=== PATIENT | male | born 1990 | race Caucasian/White ===

== ENCOUNTER 2018-05-23 17:15 | Outpatient (CLI) | payer OTHER ==
--- NOTE | 2018-05-23 18:34 | CT Report ---
Procedure Date: 05/23/2018 Accession Number: [id number] / [id number] Procedure: CT - Abdomen/Pelvis W/O CPT Code: FULL RESULT: EXAM: CT ABDOMEN AND PELVIS (CT KUB) EXAM DATE: 05/23/2018 06:14 PM. CLINICAL HISTORY: HEMATURIA UNSPECIFIED, UROLITHIASIS. COMPARISONS: 09/27/2014. TECHNIQUE: Routine axial helical CT imaging was performed through the abdomen and pelvis without IV contrast. Reconstructions: Coronal and sagittal. In accordance with CT protocol optimization, one or more of the following dose reduction techniques were utilized for this exam: automated exposure control, adjustment of mA and/or KV based on patient size, or use of iterative reconstructive technique. FINDINGS: Lung Bases: Unremarkable. Right Kidney/Ureter: Mild right hydronephrosis from a 5 x 6 mm ureteropelvic junction calcification. 2 mm lower pole nonobstructing calcification Left Kidney/Ureter: No stones, hydronephrosis, or hydroureter. No perinephric fat stranding. Other Solid Organs: Noncontrast images of the solid organs are grossly unremarkable. Gallbladder/Bile Ducts: Unremarkable. Peritoneal Cavity: No free fluid, free air or sharee adenopathy. Bowel is grossly unremarkable. Normal appendix Pelvic Organs: No bladder stones or wall thickening. Noncontrast images of the visualized pelvic organs are unremarkable. Vasculature: Unremarkable. Other: None. IMPRESSION: Mild right hydronephrosis from a 5 x 6 mm ureteropelvic junction calcification. 2 mm right lower pole nonobstructing calcification [facility] The call report notification system was initiated by Dr. Rosalee Dobbins at 18:29 hrs on 05/23/18. The above findings were discussed with Kamla Molina Dr by Dr. Rosalee Dobbins at 18:33 hrs on 05/23/18.
== END 2018-05-23 17:16 | disposition home or self-care (01) ==
LOC: DI 17:15
PROVIDERS: ATTEND Family Medicine
DX: R31.9 Hematuria, unspecified (principal); N20.9 Urinary calculus, unspecified; I13.0 Hypertensive heart and chronic kidney disease with heart failure and stage 1 through stage 4 chronic kidney disease, or unspecified chronic kidney disease; E11.22 Type 2 diabetes mellitus with diabetic chronic kidney disease; N18.9 Chronic kidney disease, unspecified; I50.9 Heart failure, unspecified; C90.00 Multiple myeloma not having achieved remission
CPT/HCPCS: 74176

== ENCOUNTER 2018-08-30 16:43 | Emergency (ER) | payer OTHER ==
[2018-08-30 17:01] VITALS: BP 136/79
[2018-08-30] MEDS ORDERED: LIDOCAINE 1% 2 ML VIAL SUBQ STA (17:29)
--- NOTE | 2018-08-30 18:23 | ED Physician Documentation ---
PD HPI UPPER EXT INJURY - Stated complaint Stated Complaint: RT THUMB LAC/INJ - Chief complaint Chief Complaint: Laceration - History obtained from History obtained from: Patient - History of Present Illness Location: Right, Other (thumb) Type of injury: Laceration Where injury occurred: Work Timing - onset: How many hours ago (1.5) Timing - duration: Hours (1.5) Timing - details: Abrupt onset, Still present Pain level max: 0 Pain level now: 0 Improved by: Nothing Worsened by: Other (Nothing) Associated symptoms: No: Weakness, Numbness, Tingling, Swelling, Discolored Contributing factors: No: Anticoagulated, Prior ortho surgery Similar symptoms before: Has not had sx before Recently seen: Not recently seen - Additonal information Additional information: 28-year-old Male With history of kidney stone and stent here with complaint of right 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 He stated he does not know when his last tetanus shot was. Review of Systems Ten Systems: 10 systems reviewed and negative Constitutional: denies: Fever Skin: reports: Laceration (s) Musculoskeletal: denies: Extremity pain, Extremity swelling Neurologic: denies: Numbness PD PAST MEDICAL HISTORY - Past Medical History Past Medical History: No Cardiovascular: None Respiratory: None Endocrine/Autoimmune: None GI: None : None Psych: None Musculoskeletal: None Derm: None - Past Surgical History Past Surgical History: Yes General: Colonoscopy - Present Medications Home Medications: Ambulatory Orders Medication Instructions Recorded Confirmed Famotidine [Pepcid] 20 mg PO BID #20 tablet 10/08/13 Ciprofloxacin HCl [Cipro] 500 mg PO BID #20 tablet 09/18/14 Ibuprofen 600 mg PO Q6HR PRN #20 tablet 09/18/14 Ondansetron Odt [Zofran] 4 mg TL Q6H PRN #10 tablet 09/18/14 Oxycodone HCl/Acetaminophen 1 each PO Q4HR PRN #15 tablet 09/18/14 [Percocet 5-325 mg Tablet] Tamsulosin [Flomax] 0.4 mg PO DAILY #5 capsule 09/18/14 - Allergies Allergies/Adverse Reactions: Allergies Allergy/AdvReac Type Severity Reaction Status Date / Time Sulfa (Sulfonamide Allergy Intermediate Hives Verified 08/30/18 17:02 Antibiotics) - Social History Does the pt smoke?: No Smoking Status: Never smoker Does the pt drink ETOH?: Yes Does the pt have substance abuse?: No - Immunizations Immunizations are current?: Yes - POLST Patient has POLST: No PD ED PE NORMAL - Vitals Vital signs reviewed: Yes - General General: Alert and oriented X 3, No acute distress, Well developed/nourished - HEENT HEENT: Moist mucous membranes - Neck Neck: Supple, no meningeal sign - Cardiac Cardiac: RRR, Strong equal pulses - Respiratory Respiratory: No respiratory distress - Derm Derm: Normal color, Warm and dry, No rash, Other (Right thumb volar aspect there is a 1 cm linear laceration in the middle aspect, depth about 2 mm. Full range of motion. Strength 5/5. No tendon injury noted. Capillary refill less than 2 seconds. Color pink. Bleeding controlled. Pulses +2. Sensation intact) - Extremities Extremities: No deformity, No tenderness to palpate, Normal ROM s pain, No edema - Neuro Neuro: Alert and oriented X 3, No motor deficit, No sensory deficit - Psych Psych: Normal mood, Normal affect Results - Vitals Vitals: Vital Signs - 24 hr 08/30/18 16:59 Temperature 36.8 C Heart Rate 90 Respiratory 14 Rate Blood Pressure 136/79 H O2 Saturation 97 Oxygen O2 Source Room air Procedures - Laceration (location) Finger right Dorsal Length in cm: 1 Wound type: Linear, Superficial Neurovascular status: Sensory intact, Motor intact, Vascular intact Tendon involvement: Tendon intact. No: Tendon Injury Anesthesia: Lidocaine 1% Wound Preparation: Irrigated copiously NS Skin layer closure: Nylon, Steri strips, Interrupted, Size #-0 - enter number (5), Sutures - enter # (3) Other: Patient tolerated well, No complications, Neurovascular intact, Tetanus booster given Complexity: Simple Departure - Departure Disposition: 01 Home, Self Care Clinical Impression: Laceration Condition: Stable Instructions: ED Laceration All Comments: Keep wound clean and dry. Steri-Strips will come off by itself. Wound check in 2 days. Suture removal in 7 days. If signs of infection Or worse return to the emergency room.Today you received a tetanus booster shot (TDap), Light duty at work for 1 week. Forms: Activity restrictions
[2018-08-30] MEDS ORDERED: TETANUS/DIPHTHERIA/PERTUSSIS 0.5 ML SYRINGE IM ONE (18:30)
== END 2018-08-30 18:45 | disposition home or self-care (01) ==
LOC: ED 16:43
DX: S61.011A Laceration without foreign body of right thumb without damage to nail, initial encounter (principal); W26.0XXA Contact with knife, initial encounter; Y99.0 Civilian activity done for income or pay; Z23 Encounter for immunization
CPT/HCPCS: 90471; 99282; 99283

== ENCOUNTER 2020-10-22 18:59 | Emergency (ER) | payer OTHER ==
--- NOTE | 2020-10-22 20:02 | ED Physician Documentation ---
History of Present Illness - Stated complaint Stated Complaint: TREE FELL ON RT SIDE OF BODY - Chief complaint Chief Complaint: General - History obtained from History obtained from: Patient - Additonal information Additional information: Patient comes emergency department chief complaint of a tree falling on his shoulder now having mid back pain and left hamstring pain. Patient states that he had partially cut through a log the trunk of a tree which had blown down in his [place] property, and a stop sign had gotten stuck. He states that while he was waiting for a couple of the other men to help him with the tree, he began taking branches off the tree and suddenly heard a cracking sound. The end of the trunk fell down onto his right shoulder, grazing his right ear and scalp. He states he did not sustain a major blow to the head and that he mainly is just felt bruised above his ear. There is no loss of consciousness. Patient states his neck feels a little tight in the lateral musculature on the right but otherwise no neck issues. The patient has noticed some muscle soreness on his right back in the thoracic area. No spinal pain that he is noted. Patient also complains of some left hamstring pain that he describes as more of an ache. The patient states that after the injury, which knocked him to the ground, he was able to get back up and work. He states that the tree did not crush him and that he actually felt pretty good after initially getting knocked down. He finished clearing the property of down trees but by the end of the day, began to notice that the pain in his muscles was a little worse. Patient characterizes it as an ache and states that he took a dose of naproxen which helped quite a bit. He states he just thought he would come in and make sure that everything was okay. No other complaints at this time. No numbness or tingling in any extremities. No weakness. No dizziness or headache. No right shoulder pain. No abdominal or chest pain. No other complaints at this time. Review of Systems Ten Systems: 10 systems reviewed and negative Constitutional: reports: Reviewed and negative Eyes: reports: Reviewed and negative Ears: reports: Reviewed and negative Nose: reports: Reviewed and negative Throat: reports: Reviewed and negative Cardiac: reports: Reviewed and negative Respiratory: reports: Reviewed and negative GI: reports: Reviewed and negative : reports: Reviewed and negative Skin: reports: Reviewed and negative Musculoskeletal: reports: Back pain, Extremity pain Neurologic: reports: Reviewed and negative Psychiatric: reports: Reviewed and negative Endocrine: reports: Reviewed and negative Immunocompromised: reports: Reviewed and negative PD PAST MEDICAL HISTORY - Past Medical History Past Medical History: Yes Cardiovascular: None Respiratory: None Endocrine/Autoimmune: None GI: None : Kidney stones Psych: None Musculoskeletal: Chronic back pain Derm: None - Past Surgical History Past Surgical History: Yes General: Colonoscopy - Present Medications Home Medications: Ambulatory Orders Medication Instructions Recorded Confirmed Famotidine [Pepcid] 20 mg PO BID #20 tablet 10/08/13 Ciprofloxacin HCl [Cipro] 500 mg PO BID #20 tablet 09/18/14 Ibuprofen 600 mg PO Q6HR PRN #20 tablet 09/18/14 Ondansetron Odt [Zofran] 4 mg TL Q6H PRN #10 tablet 09/18/14 Oxycodone HCl/Acetaminophen 1 each PO Q4HR PRN #15 tablet 09/18/14 [Percocet 5-325 mg Tablet] Tamsulosin [Flomax] 0.4 mg PO DAILY #5 capsule 09/18/14 - Allergies Allergies/Adverse Reactions: Allergies Allergy/AdvReac Type Severity Reaction Status Date / Time Sulfa (Sulfonamide Allergy Intermediate Hives Verified 10/22/20 19:22 Antibiotics) - Social History Does the pt smoke?: No Smoking Status: Never smoker Does the pt drink ETOH?: Yes Does the pt have substance abuse?: No - Immunizations Immunizations are current?: Yes - POLST Patient has POLST: No PD ED PE NORMAL - Vitals Vital signs reviewed: Yes - General General: Alert and oriented X 3, No acute distress, Well developed/nourished - HEENT HEENT: PERRL, EOMI, Ears normal, Moist mucous membranes, Other (2 cm contusion superior to the right ear and scalp.) - Neck Neck: Supple, no meningeal sign, No bony TTP, Other (Mild tenderness of the bilateral paraspinal musculature of the neck.) - Cardiac Cardiac: RRR, No murmur, Strong equal pulses - Respiratory Respiratory: No respiratory distress, Clear bilaterally - Abdomen Abdomen: Soft, Non tender, Non distended - Back Back: No CVA TTP, No spinal TTP, Other (Mild right thoracic region muscular tenderness.) - Derm Derm: Normal color, Warm and dry, No rash - Extremities Extremities: No deformity, No edema, Other (Mild tenderness over left hamstring area. No palpable deformity or mass of the muscle.) - Neuro Neuro: Alert and oriented X 3, wellhead pumper 2-12 intact, No motor deficit, No sensory deficit, Normal speech - Psych Psych: Normal mood, Normal affect Results - Vitals Vitals: Vital Signs - 24 hr 10/22/20 10/22/20 19:19 19:22 Temperature 36.5 C 36.5 C Heart Rate 100 100 Respiratory 14 14 Rate Blood Pressure 149/84 H 149/84 H O2 Saturation 98 98 Oxygen O2 Source Room air PD MEDICAL DECISION MAKING - ED course Complexity details: considered differential, d/w patient ED course: Discussed with the patient that I do not find any evidence of anything more serious than muscle strains and a bruise. The naproxen seems to be working well for the patient at home, and he has declined any prescription for muscle relaxer or any other analgesia. We have discussed heat, ice, and stretching. 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 He does not feel at this point this is going to interfere with his ability to do his job. I provided reassurance and the usual indications for return. Departure - Departure Disposition: 01 Home, Self Care Clinical Impression: Hamstring muscle strain Qualifiers: Encounter type: initial encounter Laterality: left Qualified Code(s): S76.312A - Strain of muscle, fascia and tendon of the posterior muscle group at thigh level, left thigh, initial encounter Strain of mid-back Qualifiers: Encounter type: initial encounter Qualified Code(s): S29.012A - Strain of muscle and tendon of back wall of thorax, initial encounter Condition: Stable Instructions: Stretch Hamstring W Towel, Hamstring Stretch, Supine Hamstring Stretch, ED Back Care Tips
[2020-10-22 20:09] VITALS: BP 145/83
== END 2020-10-22 20:08 | disposition home or self-care (01) ==
LOC: ED 18:59
DX: S29.012A Strain of muscle and tendon of back wall of thorax, initial encounter (principal); S76.312A Strain of muscle, fascia and tendon of the posterior muscle group at thigh level, left thigh, initial encounter; S00.03XA Contusion of scalp, initial encounter; S00.431A Contusion of right ear, initial encounter; M54.2 Cervicalgia; W20.8XXA Other cause of strike by thrown, projected or falling object, initial encounter; Y93.89 Activity, other specified; Y92.22 Religious institution as the place of occurrence of the external cause
CPT/HCPCS: 99281; 99282

== ENCOUNTER 2021-03-05 15:30 | Outpatient (CLI) | payer BC, OTHER ==
--- NOTE | 2021-03-05 16:00 | XRAY Report ---
PROCEDURE: Wrist 3 View RT INDICATIONS: TENOSYNOVITIS TECHNIQUE: 3 views of the wrist were acquired. COMPARISON: None FINDINGS: Bones: No fractures or dislocations. No suspicious bony lesions. Soft tissues: No suspicious soft tissue calcifications. IMPRESSION: No osseous lesion. If there are persistent symptoms or continued clinical concern for pathology, the n repeat plain film radiographs (7-10 days) or advanced imaging (CT, MR, bone scan) should be conside red for further evaluation. Reviewed by: Gogo Greer MD, PhD on 03/05/2021 3:59 PM PDT Approved by: Gogo Greer MD, PhD on 03/05/2021 3:59 PM PDT Station ID: [id number]
== END 2021-03-05 23:59 | disposition home or self-care (01) ==
LOC: DI.N 15:30
PROVIDERS: ATTEND Nurse Practitioner
DX: M65.9 Synovitis and tenosynovitis, unspecified (principal)

== ENCOUNTER 2021-06-03 08:00 | Outpatient (CLI) | payer BC ==
[2021-06-03 17:51] LABS: BASOPHILS # (AUTO) 0.1 10^3/uL (0.0-0.1); BASOPHILS % (AUTO) 0.8 %; EOSINOPHILS # (AUTO) 0.4 10^3/uL (0.0-0.7); EOSINOPHILS % (AUTO) 5.3 %; HCT - HEMATOCRIT 41.4 % (42.0-52.0); LYMPHOCYTES % (AUTO) 27.7 %; MEAN CORPUSCULAR HEMOGLOBIN 31.6 pg (27.0-31.0); MEAN CORPUSCULAR HGB CONC 33.8 g/dL (32.0-36.0); MEAN CORPUSCULAR VOLUME 93.5 fL (80.0-94.0); MEAN PLATELET VOLUME 11.9 fL (7.4-11.4); MONOCYTES # (AUTO) 0.7 10^3/uL (0.0-1.0); MONOCYTES % (AUTO) 9.6 %; NEUTROPHILS % (AUTO) 55.9 %; PLT - PLATELET COUNT 185 10^3/uL (130-450); RED BLOOD COUNT 4.43 10^6/uL (4.70-6.10); RED CELL DISTRIBUTION WIDTH 11.9 % (12.0-15.0); WHITE BLOOD COUNT 7.2 x10^3/uL (4.8-10.8)
[2021-06-03 18:10] LABS: ALBUMIN 4.3 g/dL (3.2-5.5); ALBUMIN/GLOBULIN RATIO 1.3 (1.0-2.2); ALKALINE PHOSPHATASE 60 IU/L (42-121); ALT ALANINE AMINOTRANSFERASE 30 IU/L (10-60); AST ASPARTATE AMINOTRANSFERASE 22 IU/L (10-42); BILIRUBIN,TOTAL 0.7 mg/dL (0.2-1.0); BUN - BLOOD UREA NITROGEN 17 mg/dL (6-20); CALCIUM 9.4 mg/dL (8.5-10.3); CARBON DIOXIDE - CO2 28 mmol/L (21-32); CHLORIDE 102 mmol/L (101-111); CHOL/HDL RATIO 6.1 (<5.0); CHOLESTEROL 237 mg/dL; CREATININE 0.9 mg/dL (0.6-1.2); GFR - MDRD 98 (>89); GLUCOSE 125 mg/dL (70-100); HDL CHOLESTEROL 39 mg/dL; LDL CHOLESTEROL,CALCULATED 148 mg/dL; LDL/HDL RATIO 3.8 (<3.6); POTASSIUM 3.9 mmol/L (3.5-5.0); SODIUM 138 mmol/L (135-145); TOTAL PROTEIN 7.5 g/dL (6.7-8.2); TRIGLYCERIDES 252 mg/dL; VLDL CHOLESTEROL 50 mg/dL
[2021-06-03 20:03] LABS: ESTIMATED AVERAGE GLUCOSE 114 mg/dL (70-100); HEMOGLOBIN A1c% 5.6 % (4.27-6.07)
[2021-06-05 14:16] LABS: NIL 0.04 IU/mL
== END 2021-06-03 23:59 | disposition home or self-care (01) ==
LOC: LAB.WCP 08:00
PROVIDERS: ATTEND Family Medicine
DX: E66.9 Obesity, unspecified (principal); Z11.1 Encounter for screening for respiratory tuberculosis
CPT/HCPCS: 36415; 80053; 80061; 83036; 83721; 85025; 86480

== ENCOUNTER 2022-06-21 08:53 | Outpatient (CLI) | payer BC ==
[2022-06-21 09:07] LABS: BASOPHILS # (AUTO) 0.1 10^3/uL (0.0-0.1); BASOPHILS % (AUTO) 0.8 %; EOSINOPHILS # (AUTO) 0.3 10^3/uL (0.0-0.7); EOSINOPHILS % (AUTO) 5.2 %; HCT - HEMATOCRIT 40.1 % (42.0-52.0); HGB - HEMOGLOBIN 13.8 g/dL (14.0-18.0); LYMPHOCYTES # (AUTO) 1.8 10^3/uL (1.5-3.5); LYMPHOCYTES % (AUTO) 29.2 %; MEAN CORPUSCULAR HEMOGLOBIN 31.1 pg (27.0-31.0); MEAN CORPUSCULAR HGB CONC 34.4 g/dL (32.0-36.0); MEAN CORPUSCULAR VOLUME 90.3 fL (80.0-94.0); MONOCYTES # (AUTO) 0.5 10^3/uL (0.0-1.0); MONOCYTES % (AUTO) 7.9 %; NEUTROPHILS # (AUTO) 3.6 10^3/uL (1.5-6.6); NEUTROPHILS % (AUTO) 56.6 %; PLT - PLATELET COUNT 170 10^3/uL (130-450); RED BLOOD COUNT 4.44 10^6/uL (4.70-6.10); WHITE BLOOD COUNT 6.3 x10^3/uL (4.8-10.8)
[2022-06-21 09:32] LABS: ALBUMIN 4.3 g/dL (3.2-5.5); ALBUMIN/GLOBULIN RATIO 1.4 (1.0-2.2); ALKALINE PHOSPHATASE 56 IU/L (42-121); ALT ALANINE AMINOTRANSFERASE 26 IU/L (10-60); AST ASPARTATE AMINOTRANSFERASE 19 IU/L (10-42); BILIRUBIN,TOTAL 0.7 mg/dL (0.2-1.0); BUN - BLOOD UREA NITROGEN 15 mg/dL (6-20); CALCIUM 9.3 mg/dL (8.5-10.3); CARBON DIOXIDE - CO2 29 mmol/L (21-32); CHLORIDE 103 mmol/L (101-111); CHOL/HDL RATIO 5.7 (<5.0); CHOLESTEROL 201 mg/dL; CREATININE 0.8 mg/dL (0.6-1.2); GFR - MDRD 111 (>89); GLUCOSE 123 mg/dL (70-100); HDL CHOLESTEROL 35 mg/dL; LDL CHOLESTEROL,CALCULATED 141 mg/dL; SODIUM 139 mmol/L (135-145); TOTAL PROTEIN 7.3 g/dL (6.7-8.2); TRIGLYCERIDES 124 mg/dL; VLDL CHOLESTEROL 25 mg/dL
== END 2022-06-21 08:54 | disposition home or self-care (01) ==
LOC: LAB 08:53
PROVIDERS: ATTEND Physician Assistant
DX: E66.9 Obesity, unspecified (principal); R10.13 Epigastric pain; E78.5 Hyperlipidemia, unspecified; Z13.29 Encounter for screening for other suspected endocrine disorder
CPT/HCPCS: 36415; 80053; 80061; 83721; 84443; 85025

== ENCOUNTER 2024-02-09 14:10 | Emergency (ER) | payer BC, OTHER ==
[2024-02-09 14:26] VITALS: BP 122/83; O2SAT 99
[2024-02-09] MEDS: PROPARACAINE 0.5% OPHTH DROPS 15 ML LEFTEYE STA (14:27)
--- NOTE | 2024-02-09 14:36 | ED Physician Documentation ---
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 He did rub his eye with and felt like something He got something out but still feels a little bit of irritation to the lower inner eyelid. He does normally wear glasses. He reports his vision seems normal. He has not had any abnormal drainage or excessive tearing of the eye. Review of Systems Eyes: reports: Irritation. denies: Decreased vision, Discharge PD PAST MEDICAL HISTORY - Past Medical History Cardiovascular: None Respiratory: None Endocrine/Autoimmune: None GI: None : Kidney stones Psych: None Musculoskeletal: Chronic back pain Derm: None - Past Surgical History Past Surgical History: Yes General: Colonoscopy - Present Medications Home Medications: Ambulatory Orders Medication Instructions Recorded Confirmed Famotidine [Pepcid] 20 mg PO BID #20 tablet 10/08/13 Ibuprofen 600 mg PO Q6HR PRN #20 tablet 09/18/14 Tamsulosin [Flomax] 0.4 mg PO DAILY #5 capsule 09/18/14 - Allergies Allergies/Adverse Reactions: Allergies Allergy/AdvReac Type Severity Reaction Status Date / Time Sulfa (Sulfonamide Allergy Intermediate Hives Verified 02/09/24 14:17 Antibiotics) - Social History Does the pt smoke?: No Smoking Status: Never smoker Does the pt drink ETOH?: Yes Does the pt have substance abuse?: No - Immunizations Immunizations are current?: Yes - POLST Patient has POLST: No PD ED PE NORMAL - General General: Alert and oriented X 3, No acute distress, Well developed/nourished - HEENT HEENT: Atraumatic, PERRL, EOMI, Moist mucous membranes, Pharynx benign - Respiratory Respiratory: No respiratory distress - Neuro Neuro: Normal speech PD ED PE EXPANDED - Eyes Eyes: Visual acuity - see nn, PERRL, EOMI, Normal eyelids, No eyelid FB (everted), Nl conjunctiva/sclera, Normal corneas, Anterior chambers clear. No: Fluorescein uptake, Hyphema Results - Vitals Vitals: Vital Signs - 24 hr 02/09/24 02/09/2424 14:12 14:29 14:46 Temperature 35.7 C L Heart Rate 107 H Respiratory 18 17 17 Rate Blood Pressure 122/83 H O2 Saturation 99 Oxygen O2 Source Room air PD Medical Decision Making - ED course ED course: Patient with concerns for possible foreign body. Says he felt something in his eye while working on a car fire although he did have eye protection on. He states he felt like he got something out of his eye but still feels a little bit of irritation to the inner lower eyelid region of the left eye. I did carefully inspect underneath both eyelids and do not see any signs of foreign body. He does not have any conjunctival injection or excessive tearing to suggest ongoing presence of a foreign body. No corneal abrasion. Visual acuity is normal. Patient counseled on concerning symptoms to return for. Departure - Departure Disposition: 01 Home, Self Care Clinical Impression: Irritation of left eye Condition: Stable Instructions: ED Eye Particle Conjunctiva FB Rslv Comments: I suspect that the irritation in your eye is from having had a small foreign body which has since come out. At this time I do not see signs of any foreign body. It is reassuring that you are not having redness in the eye or increased tearing which would suggest an ongoing presence of a foreign body. There is also no signs of injury to the cornea and your vision appears normal. Please make sure you continue to wear good eye protection and return to the ER with any concerning symptoms such as abnormal vision, abnormal drainage or any concerns. Forms: PCP List Discharge Date/Time: 02/09/24 14:47
== END 2024-02-09 14:47 | disposition home or self-care (01) ==
LOC: ED 14:10
DX: H57.89 Other specified disorders of eye and adnexa (principal)
CPT/HCPCS: 1040M; 99283; J3490